=== PATIENT | male | born 1990 | race African-American/Black ===

== ENCOUNTER 2017-09-06 08:36 | Emergency (ER) | payer MEDICAID, SELFPAY ==
[~2017-09-06] VITALS: Ht 172.7 cm; Wt 69.0 kg
[2017-09-06] MEDS ORDERED: ONDANSETRON HCL 4MG/2ML VIAL IV ONE (12:30)
[2017-09-06] MEDS ORDERED: LIDOCAINE HCL 1% 20ML VIAL (Pyxis) INJ INFIL ONE (12:30)
[2017-09-06] MEDS ORDERED: MORPHINE SULFATE 4 MG/ML CPJ (NOT FOR IM USE) IV ONE (12:30)
[2017-09-06] MEDS ORDERED: LIDOCAINE HCL/PF 1% 10 MG/ML 30ML VIAL IJ NR (12:45)
[2017-09-06] MEDS ORDERED: KETOROLAC 30MG/ML VIAL IV ONE (15:30)
[2017-09-06] MEDS ORDERED: BACITRACIN ZINC OINT UDPKT TOP ONE (15:45)
[2017-09-06 16:20] VITALS: BP 121/76
== END 2017-09-06 16:25 | disposition home or self-care (01) ==
LOC: ER 09:17
DX: L02.31 Cutaneous abscess of buttock (principal); F17.200 Nicotine dependence, unspecified, uncomplicated; F12.10 Cannabis abuse, uncomplicated; J45.909 Unspecified asthma, uncomplicated
CPT/HCPCS: 10060; 96374; 96375; 99284; J1885; J2270; J2405; J3490; Z7610